=== PATIENT | female | born 1940 | race Caucasian/White ===

== ENCOUNTER 2016-11-03 18:11 | Emergency (ER) | payer MEDICARE, OTHER ==
[2016-11-03 18:28] VITALS: BMI 31.4
[2016-11-03] MEDS ORDERED: Albuterol 0.083% Inhal Sol (2.5 mg/3 mL) UD INH ONE (18:53)
--- NOTE | 2016-11-03 19:05 | ED PDOC ---
HPI: CCC, URI, Sore Throat Chief Complaint (Nursing): Cough, Cold, Congestion Chief Complaint (Provider): cough since monday History Per: Patient History/Exam Limitations: no limitations Onset/Duration Of Symptoms: Days (4) Current Symptoms Are (Timing): Still Present Location Of Pain: None Sick Contacts (Context): Family Member(s) (currently admitted to ICU, has been visiting) Associated Symptoms: Cough (non productive cough), Sputum (feels in chest), Nasal Congestion. denies: Fever, Chills, Sore Throat, Neck Pain, Myalgias, Nausea, Vomiting, Diarrhea Additional Complaint(s): 76 year old female presents to ED with complaints of cough for past 4 days. Patient endorses feeling chest congestion and coughing without being able to spit up sputum. Admits she has had wheezing. She denies fevers, chills, chest pain, dyspnea, abdominal pain, diarrhea, pedal edema. She has a family member currently admitted to ICU and she has been visiting. She has been taking Robitussin with some relief of cough.Has ventolin pump given to her in ED approx 1 year ago. Has not used it. PMD: [facility] Refrigeration Service Inspector: Dr. Hand Medications: reviewed. Allergies NKDA Surgical hx: Cardiac cath x 2 Past Medical History Vital Signs: Last Vital Signs Temp 98 F 11/03/16 20:06 Pulse 66 11/03/16 20:06 Resp 18 11/03/16 20:06 BP 120/57 L 11/03/16 20:06 Pulse Ox 97 11/03/16 20:06 - Medical History PMH: CAD, Diabetes, GERD, HTN, Hypercholesterolemia Denies: Chronic Kidney Disease - Family History Family History: States: Unknown Family Hx - Home Medications Home Medications: Ambulatory Orders Medication Instructions Recorded Amlodipine Besylate 5 mg PO DAILY 10/08/14 Carvedilol [Coreg] 25 mg PO BID 10/08/14 Clopidogrel [Plavix] 75 mg PO DAILY 10/08/14 Esomeprazole Magnesium [Nexium] 40 mg PO DAILY 10/08/14 Isosorbide Mononitrate [Imdur] 120 mg PO DAILY 10/08/14 Metformin HCl 1,000 mg PO BID 10/08/14 Simvastatin 20 mg PO DAILY 10/08/14 Albuterol HFA [Ventolin HFA 90 1 puff IH ASDIR #1 unit 06/03/15 mcg/actuation (8 g)] Benzonatate 200 mg PO TID PRN #20 capsule 06/03/15 Clarithromycin 500 mg PO BID #14 tablet 06/03/15 - Allergies Allergies/Adverse Reactions: Allergies Allergy/AdvReac Type Severity Reaction Status Date / Time No Known Allergies Allergy Verified 10/08/14 18:55 Review of Systems Constitutional: Negative for: Fever, Chills Eyes: Negative for: Pain ENT: Positive for: Nose Congestion. Negative for: Ear Discharge, Nose Discharge , Throat Pain Cardiovascular: Negative for: Chest Pain, Palpitations Respiratory: Positive for: Cough (non productive, not coughing during exam or while seen ambulating in ED.), Wheezing. Negative for: Shortness of Breath, Hemoptysis, SOB with Exertion, Pleuritic Pain Gastrointestinal: Negative for: Nausea, Vomiting, Abdominal Pain, Diarrhea Musculoskeletal: Negative for: Neck Pain Neurological: Negative for: Weakness, Numbness, Incoordination, Change in Speech , Confusion, Altered Mental Status Physical Exam - Physical Exam Appears: Positive for: No Acute Distress Head Exam: Positive for: NORMAL INSPECTION Skin: Positive for: Normal Color, Warm, Dry Cardiovascular/Chest: Positive for: Regular Rate, Rhythm (distant heart sounds) . Negative for: Murmur, Bradycardia, Tachycardia Respiratory: Positive for: Normal Breath Sounds. Negative for: Accessory Muscle Use, Crackles, Rales, Rhonchi, Wheezing Gastrointestinal/Abdominal: Positive for: Bowel Sounds, Soft. Negative for: Tenderness, Distended, Guarding Back: Positive for: Normal Inspection. 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 Negative for: Motor/Sensory Deficits - ECG O2 Sat by Pulse Oximetry: 98 - Progress ED Course And Treament: 76 year old female with cough * CXR * duoneb reassess case d/w Dr. Grewal. pt re-examined. improved with duoneb x 1 CXR: There is new thickening along the right minor fissure which may be due to a small quantity of loculated pleural effusion versus pleural scarring. The lungs and pleural spaces are otherwise clear. Pt stable for discharge. ER precautions given to patient. D/w Dr. Grewal Disposition - Clinical Impression Clinical Impression: Cough - Disposition Referrals: [facility] [Outside] [facility] [Outside] Condition: IMPROVED Additional Instructions: follow up with the clinic in 2 days return to the ED with any worsening or concerning symptoms Instructions: Acute Cough (ED) Print Language: GEORGIAN
[2016-11-03 20:07] VITALS: BP 120/57; PULSE 66; RESP 18; TEMP 98
[2016-11-03 20:35] VITALS: O2SAT 98
--- NOTE | 2016-11-04 08:18 | RAD ---
HISTORY: cough COMPARISON: Comparison is made to 07/07/2015 TECHNIQUE: Chest PA and lateral FINDINGS: LUNGS: No active pulmonary disease. PLEURA: Possible trace fluid at the right fissure. Otherwise no evidence of significant pleural effusion or pneumothorax CARDIOVASCULAR: The cardiac silhouette is enlarged. OSSEOUS STRUCTURES: No significant abnormalities. VISUALIZED UPPER ABDOMEN: Normal. OTHER FINDINGS: None. IMPRESSION: Re- demonstration of cardiomegaly. Possible trace fluid at the right fissure. Otherwise no interval change.
== END 2016-11-03 20:38 | disposition home or self-care (01) ==
LOC: H.ER 18:11
DX: R05 Cough (principal); R09.89 Other specified symptoms and signs involving the circulatory and respiratory systems

== ENCOUNTER 2017-06-08 20:12 | Emergency (ER) | payer MEDICARE, OTHER ==
[2017-06-08 20:12] VITALS: BMI 31.4
[2017-06-08 20:40] VITALS: BP 133/72; PULSE 83; RESP 16; TEMP 98.6; O2SAT 97
--- NOTE | 2017-06-08 21:22 | ED PDOC ---
HPI: CCC, URI, Sore Throat Time Seen by Provider: 06/08/17 20:30 Chief Complaint (Nursing): Cough, Cold, Congestion Chief Complaint (Provider): Cough History Per: Patient History/Exam Limitations: no limitations Onset/Duration Of Symptoms: Days (x1 week) Current Symptoms Are (Timing): Still Present Additional Complaint(s): 76 year old female with a past medical history of HTN, diabetes, and CABG, who presents to the ED complaining of cough x1 week. Patient states his cough is productive of white phlegm. Denies fever, body aches, chest pain, or shortness of breath. PMD: Dakotah Perez Past Medical History Reviewed: Historical Data, Nursing Documentation, Vital Signs Vital Signs: Last Vital Signs Temp 98.6 F 06/08/17 20:37 Pulse 83 06/08/17 20:37 Resp 16 06/08/17 20:37 BP 133/72 06/08/17 20:37 Pulse Ox 97 06/09/17 00:19 - Medical History PMH: CAD, Diabetes, GERD, HTN, Hypercholesterolemia Denies: Chronic Kidney Disease - Surgical History Surgical History: CABG - Family History Family History: States: Unknown Family Hx - Social History Current smoker - smoking cessation education provided: No Alcohol: None Drugs: Denies - Home Medications Home Medications: Ambulatory Orders Medication Instructions Recorded Amlodipine Besylate 5 mg PO DAILY 10/08/14 Carvedilol [Coreg] 25 mg PO BID 10/08/14 Clopidogrel [Plavix] 75 mg PO DAILY 10/08/14 Esomeprazole Magnesium [Nexium] 40 mg PO DAILY 10/08/14 Isosorbide Mononitrate [Imdur] 120 mg PO DAILY 10/08/14 Metformin HCl 1,000 mg PO BID 10/08/14 Simvastatin 20 mg PO DAILY 10/08/14 Albuterol HFA [Ventolin HFA 90 1 puff IH ASDIR #1 unit 06/03/15 mcg/actuation (8 g)] Benzonatate 200 mg PO TID PRN #20 capsule 06/03/15 Clarithromycin 500 mg PO BID #14 tablet 06/03/15 Albuterol HFA [Ventolin HFA 90 1 - 2 puff IH Q4H PRN #1 bottle 06/08/17 mcg/actuation (8 g)] Azithromycin [Zithromax] 250 mg PO DAILY #6 tab 06/08/17 - Allergies Allergies/Adverse Reactions: Allergies Allergy/AdvReac Type Severity Reaction Status Date / Time No Known Allergies Allergy Verified 06/08/17 20:37 Review of Systems Constitutional: Negative for: Fever Cardiovascular: Negative for: Chest Pain Respiratory: Positive for: Cough, Sputum. Negative for: Shortness of Breath Physical Exam - Reviewed Nursing Documentation Reviewed: Yes Vital Signs Reviewed: Yes - Physical Exam Appears: Positive for: Non-toxic, No Acute Distress Head Exam: Positive for: ATRAUMATIC, NORMAL INSPECTION, NORMOCEPHALIC Skin: Positive for: Normal Color, Warm, Dry. Negative for: Rash Eye Exam: Positive for: EOMI, Normal appearance, PERRL Neck: Positive for: Normal, Painless ROM, Supple Cardiovascular/Chest: Positive for: Regular Rate, Rhythm. Negative for: Murmur Respiratory: Positive for: Normal Breath Sounds. Negative for: Respiratory Distress Gastrointestinal/Abdominal: Positive for: Normal Exam, Bowel Sounds, Soft. Negative for: Tenderness Back: Positive for: Normal Inspection. Negative for: L CVA Tenderness, R CVA Tenderness, Vertebral Tenderness Extremity: Positive for: Normal ROM. Negative for: Pedal Edema, Deformity Neurologic/Psych: Positive for: Alert, Oriented (x3). Negative for: Motor/ Sensory Deficits - ECG O2 Sat by Pulse Oximetry: 97 (RA) Pulse Ox Interpretation: Normal Medical Decision Making Medical Decision Making: Time: 21:22 Initial Impression: cough R/o pneumonia, r/o influenza Initial Plan: --Chest X-Ray 2 views --Influenza A B --Reevaluation Patient feels better. X-ray and Influenza A and B present negative results. vitals stable. pt looks well. ambulating comfortably. no respiratory distress. Clinical Impression: Bronchitis Upon provider evaluation patient is medically stable, and requires no further treatment in the ED at this time. Patient will be discharged with Albuterol and Zithromax for acute bronchitis. Counseling was provided and all questions were answered regarding diagnosis and need for follow up with PMD. There is agreement to discharge plan. Return if symptoms persist or worsen. Scribe Attestation: Documented by Gurwinder Kothari and Jeff Murry, acting as scribes for Michelle Grewal MD. Provider Scribe Attestation: All medical record entries made by the Scribe were at my direction and personally dictated by me. I have reviewed the chart and agree that the record accurately reflects my personal performance of the history, physical exam, medical decision making, and the department course for this patient. I have also personally directed, reviewed, and agree with the discharge instructions and disposition. Disposition - Clinical Impression Clinical Impression: Bronchitis - Patient ED Disposition Is Patient to be Admitted: No - Disposition Referrals: [facility]ending [facility] [Outside] [facility] [Outside] Disposition: Routine/Home Disposition Time: 22:20 Condition: IMPROVED Additional Instructions: follow up with your primary doctor in 1-2 days return to the ED with any worsening or concerning symptoms Prescriptions: Albuterol HFA [Ventolin HFA 90 mcg/actuation (8 g)] 1 - 2 puff IH Q4H PRN #1 bottle PRN Reason: Wheezing Azithromycin [Zithromax] 250 mg PO DAILY #6 tab Instructions: Acute Bronchitis Forms: [facility] (Arabic), [facility] ED School/Work Excuse
[2017-06-08] MEDS ORDERED: Albuterol-Ipratrop 3 mg / 0.5 (3 ml) UD INH STA (23:44)
[2017-06-08] MEDS ORDERED: Albuterol-Ipratrop 3 mg / 0.5 (3 ml) UD ONE (23:58)
--- NOTE | 2017-06-09 09:23 | RAD ---
HISTORY: COMPARISON: 11/03/2016. TECHNIQUE: Chest PA and lateral FINDINGS: LINES AND TUBES: None. LUNG AND PLEURA: The lungs are hyperinflated and there is peribronchial thickening with chronic changes in both lungs. HEART AND MEDIASTINUM: The heart is not enlarged. The hilar and mediastinal contours are within normal limits. SKELETAL STRUCTURES: The bony structures are within normal limits for the patient's age. VISUALIZED UPPER ABDOMEN: Normal. OTHER FINDINGS: None. IMPRESSION: No active pulmonary disease.
== END 2017-06-09 00:15 | disposition home or self-care (01) ==
LOC: H.ER 20:12
DX: J20.9 Acute bronchitis, unspecified (principal); E11.9 Type 2 diabetes mellitus without complications; E78.00 Pure hypercholesterolemia, unspecified; I10 Essential (primary) hypertension; I25.10 Atherosclerotic heart disease of native coronary artery without angina pectoris; K21.9 Gastro-esophageal reflux disease without esophagitis; Z95.1 Presence of aortocoronary bypass graft

== ENCOUNTER 2017-07-13 03:20 | Emergency (ER) | payer MEDICARE, OTHER ==
[2017-07-13 03:21] VITALS: BMI 31.4
[2017-07-13] MEDS ORDERED: Albuterol-Ipratrop 3 mg / 0.5 (3 ml) UD INH STA ×2 (03:43)
[2017-07-13 04:09] LABS: BASO # 0.1 K/uL (0.0-0.2); BASO % 0.9 % (0.0-2.0); EOS # 0.5 K/uL (0.0-0.7); EOS % 8.1 % (0.0-4.0); HEMOGLOBIN 12.3 g/dL (12.0-16.0); LYMPH # 2.1 K/uL (1.0-4.3); LYMPH % 32.9 % (20.0-40.0); MEAN CELL VOLUME 81.6 fl (81.0-99.0); MEAN CORPUSCULAR HEMOGLOBIN 27.3 pg (27.0-31.0); MEAN CORPUSCULAR HGB CONC 33.4 g/dL (33.0-37.0); MEAN PLATELET VOLUME 7.6 fl (7.2-11.7); MONO # 0.5 K/uL (0.0-0.8); MONO % 7.1 % (0.0-10.0); NEUT # 3.3 K/uL (1.8-7.0); NRBC % 0.2 % (0.0-0.0); RBC 4.52 Mil/uL (3.80-5.20); RED CELL DISTRIBUTION WIDTH 14.8 % (11.5-14.5); WHITE BLOOD COUNT 6.5 K/uL (4.8-10.8)
[2017-07-13 04:13] LABS: BLOOD UREA NITROGEN 14 mg/dl (7-17); CALCIUM 9.2 mg/dL (8.4-10.2); GFR AFRICAN-AMERICAN > 60; GFR NON-AFRICAN AMERICAN > 60
[2017-07-13 04:15] LABS: VENOUS BLOOD GAS BASE EXCESS 4.5 mmol/L (0.0-2.0); VENOUS BLOOD GAS PCO2 46 mmHg (40-60); VENOUS BLOOD GAS PO2 34 mm/Hg (30-55); VENOUS BLOOD PH 7.42 (7.32-7.43)
--- NOTE | 2017-07-13 04:17 | ED PDOC ---
HPI: CCC, URI, Sore Throat Time Seen by Provider: 07/13/17 03:27 Chief Complaint (Nursing): Shortness Of Breath Chief Complaint (Provider): Cough History Per: Patient, Family History/Exam Limitations: no limitations Onset/Duration Of Symptoms: Worse Since (30 days ago) Current Symptoms Are (Timing): Still Present Additional Complaint(s): 76 yo female, accompanied by daughter, with a history of CABG, Diabetes, CAD, and Hypertension, presents to the ED complaining of cough, onset of 30 days ago. Patient was also seen in this ED on the , where she was diagnosed with Bronchitis and sent home with Zithromax and an Albuterol pump, however she reports of no relief. The daughter states that tonight her mother was having a very strong coughing fit with associated shortness of breath. However, upon arrival to the ED, the mother reports that her symptoms have resolved and she feels fine. She denies any chest pain, fever, or chills. Past Medical History Reviewed: Historical Data, Nursing Documentation, Vital Signs Vital Signs: Last Vital Signs Temp 98.4 F 07/13/17 03:37 Pulse 83 07/13/17 03:37 Resp 18 07/13/17 04:12 BP 156/67 H 07/13/17 03:37 Pulse Ox 96 07/13/17 04:29 - Medical History PMH: CAD, Diabetes, GERD, HTN, Hypercholesterolemia Denies: Chronic Kidney Disease - Surgical History Surgical History: CABG, Coronary Stent - Family History Family History: States: Unknown Family Hx - Social History Current smoker - smoking cessation education provided: No Ex-Smoker (has not smoked in the last 12 months): No Alcohol: None Drugs: Denies - Home Medications Home Medications: Ambulatory Orders Medication Instructions Recorded Amlodipine Besylate 5 mg PO DAILY 10/08/14 Carvedilol [Coreg] 25 mg PO BID 10/08/14 Clopidogrel [Plavix] 75 mg PO DAILY 10/08/14 Esomeprazole Magnesium [Nexium] 40 mg PO DAILY 10/08/14 Isosorbide Mononitrate [Imdur] 120 mg PO DAILY 10/08/14 Metformin HCl 1,000 mg PO BID 10/08/14 Simvastatin 20 mg PO DAILY 10/08/14 Albuterol HFA [Ventolin HFA 90 1 puff IH ASDIR #1 unit 06/03/15 mcg/actuation (8 g)] Benzonatate 200 mg PO TID PRN #20 capsule 06/03/15 Clarithromycin 500 mg PO BID #14 tablet 06/03/15 Albuterol HFA [Ventolin HFA 90 1 - 2 puff IH Q4H PRN #1 bottle 06/08/17 mcg/actuation (8 g)] Azithromycin [Zithromax] 250 mg PO DAILY #6 tab 06/08/17 Albuterol 0.083% [Albuterol 0.083% 2.5 mg IH Q4 PRN #60 neb 07/13/17 Inhal Lilian (2.5 mg/3 ml) UD] Benzonatate [Tessalon Perle] 100 mg PO TID #20 capsule 07/13/17 predniSONE [predniSONE Tab] 40 mg PO DAILY 3 Days tab 07/13/17 - Allergies Allergies/Adverse Reactions: Allergies Allergy/AdvReac Type Severity Reaction Status Date / Time No Known Allergies Allergy Verified 06/08/17 20:37 Review of Systems ROS Statement: Except As Marked, All Systems Reviewed And Found Negative Constitutional: Negative for: Fever, Chills Cardiovascular: Negative for: Chest Pain Respiratory: Positive for: Cough, Shortness of Breath Physical Exam - Reviewed Nursing Documentation Reviewed: Yes Vital Signs Reviewed: Yes - Physical Exam Appears: Positive for: Well (speaking in full sentences), Non-toxic, No Acute Distress (no respiratory distress) Head Exam: Positive for: ATRAUMATIC, NORMAL INSPECTION, NORMOCEPHALIC Skin: Positive for: Normal Color, Warm, DRY Eye Exam: Positive for: EOMI, Normal appearance, PERRL ENT: Positive for: Normal ENT Inspection Neck: Positive for: Normal, Painless ROM Cardiovascular/Chest: Positive for: Regular Rate, Rhythm. Negative for: Murmur Respiratory: Positive for: Wheezing (bilaterally) Gastrointestinal/Abdominal: Positive for: Normal Exam, Soft. Negative for: Tenderness Back: Positive for: Normal Inspection Extremity: Positive for: Normal ROM. Negative for: Pedal Edema, Deformity Neurologic/Psych: Positive for: Alert, Oriented. Negative for: Motor/Sensory Deficits - Laboratory Results Result Diagrams: 07/13/17 04:02 07/13/17 04:02 - ECG O2 Sat by Pulse Oximetry: 96 (RA) Pulse Ox Interpretation: Normal Medical Decision Making Medical Decision Making: Time: --03:43 Impression: --History of CAD, Hypertension, CABG, and Diabetes presents with cough [id number] with brief shortness of breath Plan: --Chest Two Views X-ray --Alubuterol 3ml INH x2 --Prednisone 40mg PO --Peak Flow Pre/Post Tx Reassess --04:00 Patient was wheezing on exam, so a nebulizer will be provided. Etiology is most likely viral in teiology Not concerned of cardiac involvement at this time. The provider will check for lactic acid and leukocytosis. She will be reevaluated afterwards. --5:00 Workup negative, no white count or lactate Patient no longer wheezing, appearing much better, states she feels better Daughter states she has access to a nebulizer machine, will prescribe albuterol nebulization liquid, tessalon, and steroids for bronchospastic cough ABx not indicated in that very unlikely bacterial given chronicity, afebrile presentation, and well appearing Advised to followup with clinic Return precautions discussed Scribe Attestation: Documented by Oni Chou acting as a scribe for Jadiel Muniz MD. Provider Attestation: All medical record entries made by the Scribe were at my direction and personally dictated by me. I have reviewed the chart and agree that the record accurately reflects my personal performance of the history, physical exam, medical decision making, and the department course for this patient. I have also personally directed, reviewed, and agree with the discharge instructions and disposition. Disposition - Clinical Impression Clinical Impression: Cough - Disposition Referrals: [facility] [Outside] Siri Ramachandran MD [Primary Care Provider] - Disposition Time: 05:00 Condition: IMPROVED Prescriptions: Albuterol 0.083% [Albuterol 0.083% Inhal Lilian (2.5 mg/3 ml) UD] 2.5 mg IH Q4 PRN #60 neb PRN Reason: Wheezing Benzonatate [Tessalon Perle] 100 mg PO TID #20 capsule predniSONE [predniSONE Tab] 40 mg PO DAILY 3 Days tab Instructions: Cough in Adults, Wheezing Forms: [facility] (Icelandic) Print Language: VENEZUELAN
--- NOTE | 2017-07-13 08:58 | RAD ---
HISTORY: cough, wheezing COMPARISON: 06/08/2027 TECHNIQUE: Chest PA and lateral FINDINGS: LUNGS: No active pulmonary disease. PLEURA: No significant pleural effusion identified. No pneumothorax apparent. CARDIOVASCULAR: Normal. OSSEOUS STRUCTURES: No significant abnormalities. VISUALIZED UPPER ABDOMEN: Normal. OTHER FINDINGS: None. IMPRESSION: No active disease.
[2017-07-13 12:14] VITALS: BP 140/66; PULSE 80; RESP 18; TEMP 98.2; O2SAT 99
== END 2017-07-13 05:04 | disposition home or self-care (01) ==
LOC: H.ER 03:20
DX: R05 Cough (principal); R06.2 Wheezing; E11.9 Type 2 diabetes mellitus without complications; E78.00 Pure hypercholesterolemia, unspecified; I10 Essential (primary) hypertension; I25.10 Atherosclerotic heart disease of native coronary artery without angina pectoris; Z95.5 Presence of coronary angioplasty implant and graft; Z95.1 Presence of aortocoronary bypass graft

== ENCOUNTER 2017-08-19 20:25 | Emergency (ER) | payer MEDICARE, OTHER ==
[2017-08-19 20:25] VITALS: BMI 31.4
[2017-08-19 21:20] VITALS: BP 138/73; PULSE 77; RESP 18; TEMP 97.9; O2SAT 96
[2017-08-19 22:21] LABS: URINE BILIRUBIN NEGATIVE (NEGATIVE); URINE BLOOD MODERATE (NEGATIVE); URINE CLARITY CLOUDY (Clear); URINE COLOR RED (YELLOW); URINE GLUCOSE (UA) NEG (Normal); URINE LEUKOCYTE ESTERASE MOD Leu/uL (Negative); URINE PROTEIN 100 mg/dL (NEGATIVE); URINE UROBILINOGEN 0.2-1.0 mg/dL (0.2-1.0)
[2017-08-19 22:29] LABS: URINE BACTERIA FEW (<OCC)
--- NOTE | 2017-08-19 23:13 | ED PDOC ---
HPI: Female Pain Chief Complaint (Provider): Blood in urine History Per: Patient, Family Additional Complaint(s): 76 y/o female with extensive PMHx including CAD, HTN, DM type 2, HLD, Bronchitis presents to ED complaining of dysuria, urine frequency, vesical tenesmus since yesterday. But since today she noticed blood in urine without any clots in it. Denies fevers, chills, N/V, or other associated complains. PMD: Dr. Siri Ramachandran <Sandra Schroeder - Last Filed: 08/19/17 23:17> <Deborah Prater - Last Filed: 08/20/17 20:52> Time Seen by Provider: 08/19/17 21:39 Chief Complaint (Nursing): Female Genitourinary Supervising Attending Note - Supervising Attending Note The Documented history was done by the: Physician Welfare Visitor, Attending Physician The documented physical exam was done by the: Physician Welfare Visitor, Attending Physician - Attestation: I have personally seen and examined this patient.: Yes I have fully participated in the care of the patient.: Yes I have reviewed all pertinent clinical information, including history, physical exam and plan: Yes <Deborah Prater - Last Filed: 08/20/17 20:52> Past Medical History Vital Signs: Last Vital Signs Temp 97.9 F 08/19/17 21:17 Pulse 77 08/19/17 21:17 Resp 18 08/19/17 21:17 BP 138/73 08/19/17 21:17 Pulse Ox 96 08/19/17 21:17 - Medical History PMH: CAD, Diabetes, GERD, HTN, Hypercholesterolemia Denies: Chronic Kidney Disease - Surgical History Surgical History: CABG, Coronary Stent - Family History Family History: States: Unknown Family Hx <Sandra Schroeder - Last Filed: 08/19/17 23:17> Vital Signs: Last Vital Signs Temp 97.9 F 08/19/17 21:17 Pulse 77 08/19/17 21:17 Resp 18 08/19/17 21:17 BP 138/73 08/19/17 21:17 Pulse Ox 96 08/19/17 23:17 <Deborah Prater - Last Filed: 08/20/17 20:52> - Home Medications Home Medications: Ambulatory Orders Medication Instructions Recorded Amlodipine Besylate 5 mg PO DAILY 10/08/14 Carvedilol [Coreg] 25 mg PO BID 10/08/14 Clopidogrel [Plavix] 75 mg PO DAILY 10/08/14 Esomeprazole Magnesium [Nexium] 40 mg PO DAILY 10/08/14 Isosorbide Mononitrate [Imdur] 120 mg PO DAILY 10/08/14 Metformin HCl 1,000 mg PO BID 10/08/14 Simvastatin 20 mg PO DAILY 10/08/14 Albuterol HFA [Ventolin HFA 90 1 puff IH ASDIR #1 unit 06/03/15 mcg/actuation (8 g)] Benzonatate 200 mg PO TID PRN #20 capsule 06/03/15 Clarithromycin 500 mg PO BID #14 tablet 06/03/15 Albuterol HFA [Ventolin HFA 90 1 - 2 puff IH Q4H PRN #1 bottle 06/08/17 mcg/actuation (8 g)] Azithromycin [Zithromax] 250 mg PO DAILY #6 tab 06/08/17 Albuterol 0.083% [Albuterol 0.083% 2.5 mg IH Q4 PRN #60 neb 07/13/17 Inhal Lilian (2.5 mg/3 ml) UD] Benzonatate [Tessalon Perle] 100 mg PO TID #20 capsule 07/13/17 predniSONE [predniSONE Tab] 40 mg PO DAILY 3 Days tab 07/13/17 Nitrofurantoin Macrocrystals 1 cap PO BID #14 cap 08/19/17 [Macrobid] Phenazopyridine [Phenazopyridine 200 mg PO Q12 PRN #20 tab 08/19/17 HCl] - Allergies Allergies/Adverse Reactions: Allergies Allergy/AdvReac Type Severity Reaction Status Date / Time No Known Allergies Allergy Verified 08/19/17 21:15 Review of Systems ROS Statement: Except As Marked, All Systems Reviewed And Found Negative (as per HPI) <Sandra Schroeder - Last Filed: 08/19/17 23:17> Physical Exam - Reviewed Nursing Documentation Reviewed: Yes Vital Signs Reviewed: Yes - Physical Exam Appears: Positive for: Well, Non-toxic, No Acute Distress Skin: Positive for: Normal Color, Warm, Dry Cardiovascular/Chest: Positive for: Regular Rate, Rhythm Respiratory: Positive for: Normal Breath Sounds Gastrointestinal/Abdominal: Positive for: Bowel Sounds, Soft. Negative for: Tenderness, Distended, Guarding, Rebound Back: Positive for: Normal Inspection. Negative for: L CVA Tenderness, R CVA Tenderness Neurologic/Psych: Positive for: Alert, Oriented <Sandra Schroeder - Last Filed: 08/19/17 23:17> - ECG O2 Sat by Pulse Oximetry: 96 <Sandra Schroeder - Last Filed: 08/19/17 23:17> Medical Decision Making Medical Decision Making: Hematuria -associated with dysuria -R/O UTI -UA -Urine culture Re-evaluation -UA positive for blood , WBC, and leukocyte esterase -will give first dose of macrobid in ED -will give pyridium one dose in ED -stable to be DC home on PO Macrobid -f/u with PMD urine culture results <Sandra Schroeder - Last Filed: 08/19/17 23:17> Disposition - Patient ED Disposition Is Patient to be Admitted: No Discussed With : Deborah Prater - Disposition Disposition: Routine/Home Disposition Time: 23:15 <Sandra Schroeder - Last Filed: 08/19/17 23:17> <Deborah Prater - Last Filed: 08/20/17 20:52> - Clinical Impression Clinical Impression: Urinary tract infection, Hemorrhagic cystitis - Disposition Referrals: Siri Ramachandran MD [Family Provider] - 08/21/17 Condition: STABLE Prescriptions: Nitrofurantoin Macrocrystals [Macrobid] 1 cap PO BID #14 cap Phenazopyridine [Phenazopyridine HCl] 200 mg PO Q12 PRN #20 tab PRN Reason: dysuria Instructions: Urinary Tract Infections in Adults Forms: [facility] (Yakut) Print Language: DIVEHI
== END 2017-08-19 23:51 | disposition home or self-care (01) ==
LOC: H.ER 20:25
DX: N39.0 Urinary tract infection, site not specified (principal); N30.91 Cystitis, unspecified with hematuria; E11.9 Type 2 diabetes mellitus without complications; E78.00 Pure hypercholesterolemia, unspecified; I10 Essential (primary) hypertension; I25.10 Atherosclerotic heart disease of native coronary artery without angina pectoris; K21.9 Gastro-esophageal reflux disease without esophagitis; Z95.1 Presence of aortocoronary bypass graft; Z95.5 Presence of coronary angioplasty implant and graft